=== PATIENT | male | born 1995 | race Two or more races ===

== ENCOUNTER 2021-04-06 08:38 | Inpatient (IN) | payer OTHER ==
[2021-04-06] MEDS ORDERED: MAG HYDROX/AL HYDROX/SIMETH 30 ML UNIT-DOSE CUP PO PRN (09:06)
[2021-04-06] MEDS ORDERED: MAGNESIUM HYDROX 2400MG/30ML ORAL SUSPENSION 30 ML CUP PO PRN (09:06)
[2021-04-06] MEDS ORDERED: METHOCARBAMOL 500 MG TABLET PO PRN (09:06)
[2021-04-06] MEDS ORDERED: MAGNESIUM CITRATE 300 ML BOTTLE PO PRN (09:06)
[2021-04-06] MEDS ORDERED: hydrOXYzine PAMOATE 25 MG CAPSULE (FP) PO PRN (09:06)
[2021-04-06] MEDS ORDERED: ACETAMINOPHEN 325 MG TABLET (FP) PO PRN ×2 (09:06)
[2021-04-06] MEDS ORDERED: BISMUTH SUBSALICYLATE 524 MG/30 ML PO PRN (09:06)
[2021-04-06] MEDS ORDERED: IBUPROFEN 400 MG TABLET (FP) PO PRN (09:06)
[2021-04-06] MEDS ORDERED: ONDANSETRON *ODT* 4 MG TABLET SL PRN (09:06)
[2021-04-06] MEDS ORDERED: MENTHOL/PHENOL 1 EACH UD MM PRN (09:06)
[2021-04-06 09:10] VITALS: BMI 39.9
[2021-04-06] MEDS ORDERED: diazePAM 5 MG TABLET PO PRN ×2 (09:11→11:35)
[2021-04-06] MEDS: PRENATAL VITAMINS W/ FOLIC ACID TABLET (FP) PO SCH (10:50)
[2021-04-06] MEDS: diazePAM 5 MG TABLET PO SCH ×3 (12:12→22:38)
[2021-04-06] MEDS: MELATONIN 5 MG TABLETS PO SCH (22:38)
[2021-04-06] MEDS: THIAMINE HCL 100 MG TABLET (FP) PO SCH (22:38)
[2021-04-07] MEDS: diazePAM 5 MG TABLET PO SCH ×4 (06:02→22:22)
[2021-04-07] MEDS: PRENATAL VITAMINS W/ FOLIC ACID TABLET (FP) PO SCH (10:31)
[2021-04-07 15:22] LABS: HEMATOCRIT 47.2 % (35.4-49); HEMOGLOBIN 16.4 GM/dL (11.7-16.9); MCH 30.6 pg (25.7-33.7); MCHC 34.8 g/dl (32.0-35.9); MEAN CELL VOLUME 87.9 fl (80-96); MEAN PLT VOLUME 10.1 fl (7.5-11.1); PLATELET COUNT 209 10^3/uL (134-434); RBC 5.37 M/mm3 (4.00-5.60); RDW 13.1 % (11.9-15.9); WHITE BLOOD COUNT 11.4 K/mm3 (4.0-10.0)
[2021-04-07 15:31] LABS: ALBUMIN 3.8 g/dl (3.4-5.0); BLOOD UREA NITROGEN 11.6 mg/dL (7-18); CALCIUM 9.4 mg/dL (8.5-10.1)
[2021-04-07 15:34] LABS: CREATININE 1.3 mg/dL (0.55-1.3)
[2021-04-07 15:35] LABS: BILIRUBIN,TOTAL 0.8 mg/dL (0.2-1); TOT PROT 7.1 g/dl (6.4-8.2)
[2021-04-07 16:13] LABS: HIV INTERPRETATION NEGATIVE (NEGATIVE)
[2021-04-07] MEDS: THIAMINE HCL 100 MG TABLET (FP) PO SCH (22:22)
[2021-04-07] MEDS: MELATONIN 5 MG TABLETS PO SCH (22:22)
[2021-04-08] MEDS: diazePAM 5 MG TABLET PO SCH ×3 (05:57→22:09)
[2021-04-08] MEDS: PRENATAL VITAMINS W/ FOLIC ACID TABLET (FP) PO SCH (10:51)
[2021-04-08] MEDS: MELATONIN 5 MG TABLETS PO SCH (22:09)
[2021-04-08] MEDS: THIAMINE HCL 100 MG TABLET (FP) PO SCH (22:09)
[2021-04-09] MEDS ORDERED: diazePAM 5 MG TABLET PO SCH (06:00)
[2021-04-09 09:18] VITALS: BP 136/88; PULSE 75; TEMP 97.1
[2021-04-09] MEDS: PRENATAL VITAMINS W/ FOLIC ACID TABLET (FP) PO SCH (10:25)
[2021-04-10] MEDS ORDERED: diazePAM 5 MG TABLET PO ONE (06:00)
== END 2021-04-09 11:31 | disposition home or self-care (01) | DRG 775 ==
LOC: YASAS 08:38 → Y6N 09:30 → Y3N 17:28
PROVIDERS: ADMIT Allergy & Immunology; ATTEND Allergy & Immunology
PROC: HZ2ZZZZ Detoxification Services for Substance Abuse Treatment (ICD-10-PCS; principal; 2021-04-06)
DX: F10.230 Alcohol dependence with withdrawal, uncomplicated (principal); F10.220 Alcohol dependence with intoxication, uncomplicated; F10.282 Alcohol dependence with alcohol-induced sleep disorder; Z62.810 Personal history of physical and sexual abuse in childhood; E78.5 Hyperlipidemia, unspecified; E11.9 Type 2 diabetes mellitus without complications; D72.829 Elevated white blood cell count, unspecified
CPT/HCPCS: 36415; 80053; 85027; 86780; 87389; C9803; U0003; U0005